=== PATIENT | male | born 1990 | race Caucasian/White ===

== ENCOUNTER 2020-09-11 15:06 | Outpatient (CLI) | payer BC ==
[2020-09-12 01:55] LABS: SARS-CoV-2 PCR by NAA Not Detected (NotDetected)
== END 2020-09-11 15:07 | disposition home or self-care (01) ==
LOC: LABBT 15:06
PROVIDERS: ATTEND Ophthalmology Retina Specialist
DX: Z01.812 Encounter for preprocedural laboratory examination (principal); Z20.822 Contact with and (suspected) exposure to COVID-19
CPT/HCPCS: 87635; U0003; U0005

== ENCOUNTER 2020-09-14 08:22 | Day surgery (SDC) | payer BC ==
[2020-09-13 13:15] VITALS: BMI 31.6
[~2020-09-14 08:22] MED LIST: EPINEPHrine 0.3 MG, Dextrose 50% 3 ML in Ophthalmic Irrigation Solution 500 ML IRR SCH; Fentanyl 100 MCG/2 ML VIAL ONE; Midazolam HCl 2 mg/2 ml Vial ONE
[2020-09-14] MEDS ORDERED: Cyclopentolate 1% Opth Drop 2 ML BOT ONE (09:05)
[2020-09-14] MEDS ORDERED: Phenylephrine 2.5% Ophth Soln 5 ML BOT ONE (09:05)
[2020-09-14] MEDS ORDERED: ePHEDrine 50 MG/ML VIAL ONE (09:56)
[2020-09-14] MEDS ORDERED: Metoclopramide HCl 10 MG/2 ML VIAL ONE (09:56)
[2020-09-14] MEDS ORDERED: Lidocaine 1% PF 5 ML VIAL ONE ×2 (09:56→10:30)
[2020-09-14] MEDS ORDERED: PHENYLEPHRINE-NS 100 MCG/ML 10 ML SYRINGE ONE (09:56)
[2020-09-14] MEDS ORDERED: Ondansetron PF 4 MG/2 ML Vial ONE (09:56)
[2020-09-14] MEDS ORDERED: PROPOFOL 200 MG/20 ML VIAL ONE (09:56)
[2020-09-14] MEDS ORDERED: Famotidine/PF 20 mg/2ml Vial ONE (10:20)
[2020-09-14] MEDS ORDERED: CEFAZOLIN 1 GM VIAL ONE (10:30)
[2020-09-14] MEDS ORDERED: Triamcinolone 40 MG/ML VIAL ONE (10:30)
[2020-09-14] MEDS ORDERED: Bupivacaine PF 0.75% SDV 10 ML ONE (10:30)
[2020-09-14] MEDS ORDERED: Lidocaine 4% PF 5 ML AMP ONE (10:30)
[2020-09-14] MEDS ORDERED: Maxitrol 0.1% Opth Oint 3.5 GM TUBE ONE (10:30)
== END 2020-09-14 13:10 | disposition home or self-care (01) ==
LOC: SDC 08:22
PROVIDERS: ATTEND Ophthalmology Retina Specialist
PROC: 08T53ZZ Resection of Left Vitreous, Percutaneous Approach (ICD-10-PCS; principal; 2020-09-14)
DX: H33.42 Traction detachment of retina, left eye (principal); I10 Essential (primary) hypertension; E78.5 Hyperlipidemia, unspecified; E11.9 Type 2 diabetes mellitus without complications; Z79.4 Long term (current) use of insulin; Z79.899 Other long term (current) drug therapy
CPT/HCPCS: C1814; J0171; J0690; J2250; J2405; J2704; J2765; J3010; J3301; J3490; S0028

== ENCOUNTER 2021-03-12 08:53 | Outpatient (CLI) | payer BC ==
[2021-03-12 20:02] LABS: SARS-CoV-2 PCR by NAA Not Detected (NotDetected)
== END 2021-03-12 08:54 | disposition home or self-care (01) ==
LOC: LABBT 08:53
PROVIDERS: ATTEND Ophthalmology Retina Specialist
DX: Z01.812 Encounter for preprocedural laboratory examination (principal); H33.22 Serous retinal detachment, left eye; Z20.822 Contact with and (suspected) exposure to COVID-19
CPT/HCPCS: U0003; U0005